=== PATIENT | male | born 2000 | race Caucasian/White ===

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

== ENCOUNTER 2021-04-10 13:29 | Emergency (ER) | payer OTHER ==
[~2021-04-10] VITALS: Ht 185.4 cm; Wt 66.2 kg
[2021-04-10 13:31] VITALS: BP 122/69
--- OUTSIDE RECORDS SUMMARY | 2021-04-10 13:37 | CCD ---
Author Author [facility] Organization [facility] Address Unknown Phone Unavailable Care Team Providers Care Wine Bottle Inspector Name Role Phone Nargis-Centner, Graciela Unavailable Unavailable Nargis-Centner, Graciela Unavailable Unavailable Nargis-Centner, Graciela Unavailable Unavailable Nargis-Centner, Graciela Unavailable Unavailable Nargis-Centner, Graciela Unavailable Unavailable Nargis-Centner, Graciela Unavailable Unavailable Nargis-Centner, Graciela Unavailable Unavailable Nargis-Centner, Graciela Unavailable Unavailable Nargis-Centner, Graciela Unavailable Unavailable Nargis-Centner, Graciela Unavailable Unavailable Nargis-Centner, Graciela Unavailable Unavailable ROSS, G EDWARD RPA Unavailable Unavailable ROSS, G EDWARD RPA Unavailable Unavailable ROSS, G EDWARD RPA Unavailable Unavailable ROSS, G EDWARD RPA Unavailable Unavailable ROSS, G EDWARD RPA Unavailable Unavailable ROSS, G EDWARD RPA Unavailable Unavailable ROSS, G EDWARD RPA Unavailable Unavailable ROSS, G EDWARD RPA Unavailable Unavailable ROSS, G EDWARD RPA Unavailable Unavailable ROSS, G EDWARD RPA Unavailable Unavailable ROSS, G EDWARD RPA Unavailable Unavailable ROSS, G EDWARD RPA Unavailable Unavailable ROSS, G EDWARD RPA Unavailable Unavailable ROSS, G EDWARD RPA Unavailable Unavailable ROSS, G EDWARD RPA Unavailable Unavailable ROSS, G EDWARD RPA Unavailable Unavailable ROSS, G EDWARD RPA Unavailable Unavailable ROSS, G EDWARD RPA Unavailable Unavailable ROSS, G EDWARD RPA Unavailable Unavailable ROSS, G EDWARD RPA Unavailable Unavailable ROSS, G EDWARD RPA Unavailable Unavailable ROSS, G EDWARD RPA Unavailable Unavailable ROSS, G EDWARD RPA Unavailable Unavailable ROSS, G EDWARD RPA Unavailable Unavailable ROSS, G EDWARD RPA Unavailable Unavailable ROSS, G EDWARD RPA Unavailable Unavailable ROSS, G EDWARD RPA Unavailable Unavailable ROSS, G EDWARD RPA Unavailable Unavailable ROSS, G EDWARD RPA Unavailable Unavailable ROSS, G EDWARD RPA Unavailable Unavailable ROSS, G EDWARD RPA Unavailable Unavailable ROSS, G EDWARD RPA Unavailable Unavailable ROSS, G EDWARD RPA Unavailable Unavailable ROSS, G EDWARD RPA Unavailable Unavailable ROSS, G EDWARD RPA Unavailable Unavailable ROSS, G EDWARD RPA Unavailable Unavailable ROSS, G EDWARD RPA Unavailable Unavailable Solorio, [place] Dee Unavailable Unavailable Solorio, [place] Dee Unavailable Unavailable Solorio, [place] Dee Unavailable Unavailable Solorio, [place] Dee Unavailable Unavailable Solorio, [place] Dee Unavailable Unavailable Solorio, [place] Dee Unavailable Unavailable Solorio, [place] Dee Unavailable Unavailable Solorio, [place] Dee Unavailable Unavailable Solorio, [place] Dee Unavailable Unavailable Solorio, [place] Dee Unavailable Unavailable Solorio, [place] Dee Unavailable Unavailable Solorio, [place] Dee Unavailable Unavailable Solorio, [place] Dee Unavailable Unavailable Re-disclosure Warning The records that you are about to access may contain information from federally-assisted alcohol or drug abuse programs. If such information is present, then the following federally mandated warning applies: This information has been disclosed to you from records protected by federal confidentiality rules (42 CFR part 2). The federal rules prohibit you from making any further disclosure of this information unless further disclosure is expressly permitted by the written consent of the person to whom it pertains or as otherwise permitted by 42 CFR part 2. A general authorization for the release of medical or other information is NOT sufficient for this purpose. The Federal rules restrict any use of the information to criminally investigate or prosecute any alcohol or drug abuse patient.The records that you are about to access may contain highly sensitive health information, the redisclosure of which is protected by Article 27-F of the [facility] Public Health law. If you continue you may have access to information: Regarding HIV / AIDS; Provided by facilities licensed or operated by the [facility] Office of Mental Health; or Provided by the [facility] Office for People With Developmental Disabilities. If such information is present, then the following [facility] mandated warning applies: This information has been disclosed to you from confidential records which are protected by state law. State law prohibits you from making any further disclosure of this information without the specific written consent of the person to whom it pertains, or as otherwise permitted by law. Any unauthorized further disclosure in violation of state law may result in a fine or assisted sentence or both. A general authorization for the release of medical or other information is NOT sufficient authorization for further disc losure. Allergies and Adverse Reactions Type Description Substance Reaction Status Data Source(s ) Allergy to substance Allergy to substance Allergy to substance [place] ([facility]) Allergy to substance Allergy to substance Allergy to substance [place] ([facility]) Encounters Encounter Providers Location Date Indications Data Source(s ) Outpatient Attender: GISELL ROSS RPA 12/09 01:08:37 PM EDT - 12/09/2020 02:38:47 PM EDT [facility] ([facility] ) Graciela Barillas RPA-C: [address] [place] [address], Ph. Attender: Graciela Chu [facility] Medical 10/07/2020 12:00:00 AM EDT [place] ([facility]) MIGUEL Hernandez-C: [address] [place] [address], Ph. Attender: Dee Solorio [facility] Medical 09/10/2020 12:00:00 AM EDT [place] ([facility]) MIGUEL Hrenandez-C: [address] [place] [address], Ph. Attender: Dee Solorio [facility] Medical 09/10/2020 12:00:00 AM EDT [place] ([facility]) Immunizations Vaccine Date Status Description Data Source(s) COVID-19, mRNA, LNP-S, PF, 100 mcg/0.5 mL dose 10/08/2020 11 :06:48 PM EDT completed 10.5 mL [place] ([facility]) COVID-19 VACCINE Moderna 10/08/2020 12:00:00 AM EDT completed [place] Vaccine Series Complete: YESThis Data wa s Submitted to [facility] Via [employer]. COVID-19, mRNA, LNP-S, PF, 100 mcg/0.5 mL dose 09/11/2020 07 :34:21 AM EDT completed 10.5 mL [place] ([facility]) COVID-19, mRNA, LNP-S, PF, 100 mcg/0.5 mL dose 09/11/2020 07 :34:21 AM EDT completed 10.5 mL [place] ([facility]) COVID-19 VACCINE Moderna 09/11/2020 12:00:00 AM EDT completed [place] Vaccine Series Complete: NOThis Data was Submitted to [facility] Via [employer]. Medications No Information Insurance Providers Payer name Policy type / Coverage type Policy ID Covered green party ID Covered green party's relationship to wallis Policy [place] Plan Information / [id number] Self 00 [id number] [employer] [place] [id number] S [id number] EMEDNY [id number] SP [id number] [facility] [id number] SP [id number] ACTIVE DUTY [id number] FA2 [id number] [facility] [id number] SP [id number] EMEDNY [id number] SP [id number] MEDICAID [id number] SP [id number] SELF PAY ONLY [id number] SP [id number] [facility] [id number] SP [id number] ANSI-Medicaid [id number] ANSI-Not a Secondary Insurance [id number] MEDICAID [id number] [facility] OFFICE OF MENTAL HEALTH [id number] [facility] OFFICE OF MENTAL HEALTH [id number] [facility] [id number] F [id number] [facility] [id number] FA2 [id number] [facility] [employer] Commercial [id number] Family Depend[address] t HEALTHNET/ AD P [id number] C [id number] [facility] HUMANA [id number] FA2 [id number] [employer]ALTH[employer]/ AD P [id number] C [id number] Problems, Conditions, and Diagnoses No Information Surgeries/Procedures No Information Results ID Date Data Source [id number] 12/09/2020 02:00:00 PM EDT [facility] Name Value Range Interpretation Code Description Data Marcy rce(s) Supporting Document(s) SARS-CoV-2 RNA Resp Ql JD+probe NOT DETECTED [facility] This lab was ordered by SMITH villegas and reported by SMITH Echeverria. Procedure Social History No Information
--- NOTE | 2021-04-10 14:03 | REP ---
INDICATION: hx of pneumo, sob COMPARISON: 03/03/2020 TECHNIQUE: PA and lateral. FINDINGS: The mediastinum and cardiac silhouette are normal. The lung celeste are clear and without acute consolidation, effusion, or pneumothorax. The skeletal structures are intact and normal. IMPRESSION: No acute cardiopulmonary process. <Electronically signed by Bonifacio Cochran > 04/10/21 2518
--- OUTSIDE RECORDS SUMMARY | 2021-04-10 17:08 | CCD ---
Author Author [facility] Organization [facility] Address Unknown Phone Unavailable Care Team Providers Care Neurosurgery Spine Physician Name Role Phone Nargis-Centner, Graciela Unavailable Unavailable [...] Unavailable ROSS, G EDWARD RPA Unavailable Unavailable RSOS, G EDWARD RPA Unavailable Unavailable ROSS, G [...] ROSS, G EDWARD RPA Unavailable Unavailable Solorio, [place] Dee Unavailable Unavailable Solorio, [place] Dee Unavailable Unavailable Solorio, [place] Dee Unavailable Unavailable Solorio, [place] Dee Unavailable Unavailable Solorio, [place] Dee Unavailable Unavailable Solorio, [place] Dee Unavailable Unavailable Solorio, [place] Dee Unavailable Unavailable Solorio, [place] Dee Unavailable Unavailable Solorio, [place] Dee Unavailable Unavailable Solorio, [place] Dee Unavailable Unavailable Solorio, [place] Dee Unavailable Unavailable Solorio, [place] Dee Unavailable Unavailable Solorio, [place] Dee Unavailable Unavailable Re-disclosure Warning The records [...] is protected by Article 27-F of the [facility] Public Health law. If you continue you may have access to information: Regarding HIV / AIDS; Provided by facilities licensed or operated by the [facility] Office of Mental Health; or Provided by the [facility] Office for People With Developmental Disabilities. If such information is present, then the following [facility] mandated warning applies: This information has been [...] law may result in a fine or fci sentence or both. A general authorization for the release of medical or other information is NOT sufficient authorization for further disc losure. Allergies and Adverse Reactions Type Description Substance Reaction Status Data Source(s ) Allergy to substance Allergy to substance Allergy to substance [place] ([facility]) Allergy to substance Allergy to substance Allergy to substance [place] ([facility]) Encounters Encounter Providers Location Date Indications Data Source(s ) Outpatient Attender: GISELL ROSS RPA 12/09 01:08:37 PM EDT - 12/09/2020 02:38:47 PM EDT [facility] ([facility] ) Graciela Barillas RPA-C: [address] [place] [address], Ph. Attender: Graciela Chu [facility] Medical 10/07/2020 12:00:00 AM EDT [place] ([facility]) MIGUEL Hernandez-C: [address] [place] [address], Ph. Attender: Dee Solorio [facility] Medical 09/10/2020 12:00:00 AM EDT [place] ([facility]) MIGUEL Hernandez-C: [address] [place] [address], Ph. Attender: Dee Solorio [facility] Medical 09/10/2020 12:00:00 AM EDT [place] ([facility]) Immunizations Vaccine Date Status Description Data Source(s) COVID-19, mRNA, LNP-S, PF, 100 mcg/0.5 mL dose 10/08/2020 11 :06:48 PM EDT completed 10.5 mL [place] ([facility]) COVID-19 VACCINE Moderna 10/08/2020 12:00:00 AM EDT completed [place] Vaccine Series Complete: YESThis Data wa s Submitted to [facility] Via [employer]. COVID-19, mRNA, LNP-S, PF, 100 mcg/0.5 mL dose 09/11/2020 07 :34:21 AM EDT completed 10.5 mL [place] ([facility]) COVID-19, mRNA, LNP-S, PF, 100 mcg/0.5 mL dose 09/11/2020 07 :34:21 AM EDT completed 10.5 mL [place] ([facility]) COVID-19 VACCINE Moderna 09/11/2020 12:00:00 AM EDT completed [place] Vaccine Series Complete: NOThis Data was Submitted to [facility] Via [employer]. Medications No Information Insurance Providers Payer name Policy type / Coverage type Policy ID Covered alliance party ID Covered alliance party's relationship to wallis Policy [place]is Plan Information / [id number] Self 00 [id number] [employer] [place] [id number] S [id number] EMEDNY [id number] SP [id number] [facility] [id number] SP [id number] ACTIVE DUTY [id number] FA2 [id number] [facility] [id number] SP [id number] EMEDNY [id number] SP [id number] MEDICAID [id number] SP [id number] SELF PAY ONLY [id number] SP [id number] [facility] [id number] SP [id number] ANSI-Medicaid [id number] ANSI-Not a Secondary Insurance [id number] MEDICAID [id number] [facility] OFFICE OF MENTAL HEALTH [id number] [facility] OFFICE OF MENTAL HEALTH [id number] [facility] [id number] F [id number] PGBA [facility] [id number] FA2 [id number] [facility] [employer] Commercial [id number] Family Dependen t HEALTHNET/ AD P [id number] C [id number] [facility] HUMANA [id number] FA2 [id number] [employer]ALTH[employer]/ AD P [id number] C [id number] Problems, Conditions, and Diagnoses No Information Surgeries/Procedures No Information Results ID Date Data Source [id number] 12/09/2020 02:00:00 PM EDT [facility] Name Value Range Interpretation Code Description Data Marcy rce(s) Supporting Document(s) SARS-CoV-2 RNA Resp Ql JD+probe NOT DETECTED [facility] This lab was ordered by SMITH villegas and reported by SMITH Echeverria. Procedure Social History No Information
== END 2021-04-10 16:40 | disposition left against medical advice (07) ==
LOC: M ED 13:29
DX: Z53.21 Procedure and treatment not carried out due to patient leaving prior to being seen by health care provider (principal)

== ENCOUNTER → 2021-06-02 | Outpatient (CLI) | payer OTHER | LOC: M LABSMTC 11:21 | PROVIDERS: ATTEND Pediatrics | DX: Z20.822 Contact with and (suspected) exposure to COVID-19 (principal) | CPT/HCPCS: C9803; U0003 ==

== ENCOUNTER 2021-10-11 09:34 | Emergency (ER) | payer OTHER ==
[~2021-10-11] VITALS: Ht 188 cm; Wt 62.8 kg
[2021-10-11] MEDS ORDERED: MORPHINE 4 MG/ML 1ML VIAL/SYRINGE IV ONE (10:20)
[2021-10-11 10:45] LABS: BASO % 0.3 % (0.0-1.0); EOS # 0.1 10^3/uL (0.0-0.5); EOS % 0.6 % (0.0-3.0); HEMATOCRIT 45.1 % (42.0-52.0); LYMPH # 1.7 10^3/uL (1.5-5.0); LYMPH % 16.9 % (24.0-44.0); MEAN CORPUSCULAR HEMOGLOBIN 32.1 pg (27.0-33.0); MEAN CORPUSCULAR HGB CONC 35.5 g/dl (32.0-36.5); MEAN CORPUSCULAR VOLUME 90.4 fl (80.0-96.0); MONO # 0.7 10^3/uL (0.0-0.8); MONO % 7.1 % (2.0-8.0); NEUTROPHILS # 7.6 10^3/uL (1.5-8.5); NEUTROPHILS % 74.8 % (36.0-66.0); PLATELET COUNT, AUTOMATED 229 10^3/uL (150-450); RED BLOOD COUNT 4.99 10^6/uL (4.30-6.10); WHITE BLOOD COUNT 10.2 10^3/uL (4.0-10.0)
[2021-10-11] MEDS ORDERED: ISOVUE-370 76% 100ML VIAL As Ordered ONE (11:17)
[2021-10-11 11:24] LABS: ALBUMIN 4.5 GM/DL (3.2-5.2); ALT/SGPT 19 U/L (12-78); BILIRUBIN,TOTAL 2.3 MG/DL (0.2-1.0); BLOOD UREA NITROGEN 14 MG/DL (7-18); CALCIUM LEVEL 9.2 MG/DL (8.5-10.1); CARBON DIOXIDE LEVEL 28 MEQ/L (21-32); CHLORIDE LEVEL 105 MEQ/L (98-107); GLUCOSE, FASTING 95 MG/DL (70-100); POTASSIUM SERUM 4.2 MEQ/L (3.5-5.1); SODIUM LEVEL 138 MEQ/L (136-145); TOTAL PROTEIN 7.3 GM/DL (6.4-8.2)
[2021-10-11] MEDS ORDERED: HYDR-3713 PO (13:57)
[2021-10-11 14:20] VITALS: BP 132/72
== END 2021-10-11 14:24 | disposition home or self-care (01) ==
LOC: M ED 09:34
DX: S42.112A Displaced fracture of body of scapula, left shoulder, initial encounter for closed fracture (principal); S73.102A Unspecified sprain of left hip, initial encounter; W14.XXXA Fall from tree, initial encounter; F17.200 Nicotine dependence, unspecified, uncomplicated; F12.10 Cannabis abuse, uncomplicated; F31.9 Bipolar disorder, unspecified; Y92.830 Public park as the place of occurrence of the external cause; Y93.9 Activity, unspecified; Y99.9 Unspecified external cause status
CPT/HCPCS: 71101; 71260; 72128; 72131; 73030; 73200; 73502; 73552; 74177; 80053; 85025; 96374; 99284; J2270; Q9967

== ENCOUNTER → 2022-02-16 | Outpatient (CLI) | payer OTHER ==
[~2022-02-16] MED LIST changes: +HYDR-3713 PO
[2022-02-16 14:29] LABS: HIV 1&2 SCREEN CENTAUR NEGATIVE (NEGATIVE)
[2022-02-16 15:00] LABS: GC DNA AMPLIFICATION NEGATIVE (NEGATIVE)
[2022-02-19 06:08] LABS: HSV-1 DNA Negative (Negative); HSV-2 DNA Negative (Negative)
== END ==
LOC: M WUC 10:27
PROVIDERS: ATTEND Physician Assistant
DX: Z20.2 Contact with and (suspected) exposure to infections with a predominantly sexual mode of transmission (principal)

== ENCOUNTER 2022-04-27 17:43 | Emergency (ER) | payer OTHER ==
[~2022-04-27] VITALS: Ht 188 cm; Wt 67.7 kg
[2022-04-27] MEDS ORDERED: ACETAMINOPHEN 500 MG TAB PO ONE (21:10)
[2022-04-27 21:44] LABS: BASO % 0.5 % (0.0-1.0); EOS # 0.2 10^3/uL (0.0-0.5); EOS % 3.1 % (0.0-3.0); HEMATOCRIT 47.8 % (42.0-52.0); HEMOGLOBIN 16.3 g/dl (13.5-17.5); LYMPH # 3.1 10^3/uL (1.5-5.0); LYMPH % 40.8 % (24.0-44.0); MEAN CORPUSCULAR HGB CONC 34.1 g/dl (32.0-36.5); MEAN CORPUSCULAR VOLUME 90.9 fl (80.0-96.0); MONO # 0.4 10^3/uL (0.0-0.8); MONO % 5.6 % (2.0-8.0); NEUTROPHILS # 3.7 10^3/uL (1.5-8.5); NEUTROPHILS % 49.9 % (36.0-66.0); PLATELET COUNT, AUTOMATED 241 10^3/uL (150-450); RED BLOOD COUNT 5.26 10^6/uL (4.30-6.10); WHITE BLOOD COUNT 7.5 10^3/uL (4.0-10.0)
[2022-04-27 22:14] LABS: INR 1.11; PARTIAL THROMBOPLASTIN TIME 29.9 SECONDS (24.8-34.2); PROTHROMBIN TIME 14.5 SECONDS (12.5-14.5)
[2022-04-27 22:28] LABS: CK-MB VALUE MASS < 1.0 NG/ML (<3.6)
[2022-04-27 22:31] LABS: BLOOD UREA NITROGEN 15 MG/DL (9-23); CALCIUM LEVEL 9.7 MG/DL (8.5-10.1); CARBON DIOXIDE LEVEL 31 MMOL/L (20-31); CHLORIDE LEVEL 103 MMOL/L (98-107); CPK CREATINE PHOSPHOKINASE 104 U/L (46-171); GLUCOSE, FASTING 83 MG/DL (60-100); MB/CK RELATIVE INDEX 0.96 (< OR =4); POTASSIUM SERUM 4.3 MMOL/L (3.5-5.1); SODIUM LEVEL 140 MMOL/L (136-145)
[2022-04-28 00:29] LABS: CK-MB VALUE MASS < 1.0 NG/ML (<3.6)
[2022-04-28 00:30] LABS: CPK CREATINE PHOSPHOKINASE 94 U/L (46-171); MB/CK RELATIVE INDEX 1.06 (< OR =4)
[2022-04-28 00:40] VITALS: BP 125/70
== END 2022-04-28 00:44 | disposition home or self-care (01) ==
LOC: M ED 17:43
DX: S29.011A Strain of muscle and tendon of front wall of thorax, initial encounter (principal); S20.211A Contusion of right front wall of thorax, initial encounter; S20.212A Contusion of left front wall of thorax, initial encounter; Y04.0XXA Assault by unarmed brawl or fight, initial encounter; R00.1 Bradycardia, unspecified; I45.10 Unspecified right bundle-branch block; F32.A Depression, unspecified; F31.9 Bipolar disorder, unspecified; F90.9 Attention-deficit hyperactivity disorder, unspecified type; F12.10 Cannabis abuse, uncomplicated; Z87.891 Personal history of nicotine dependence

== ENCOUNTER 2022-08-17 18:29 | Emergency (ER) | payer OTHER ==
[~2022-08-17] VITALS: Ht 188 cm; Wt 67.1 kg
[~2022-08-17 18:29] MED LIST changes: +NYST-38 SS; -NYST50SS SS
[2022-08-17] MEDS ORDERED: GI COCKTAIL 50ML BTL(HYOSCYAMINE/MAALOX/LIDOCAINE VISCOUS)(1:3:1) PO ONE (20:00)
[2022-08-17 20:28] LABS: BASO % 0.3 % (0.0-1.0); EOS # 0.2 10^3/uL (0.0-0.5); EOS % 1.4 % (0.0-3.0); HEMATOCRIT 47.3 % (42.0-52.0); HEMOGLOBIN 16.2 g/dl (13.5-17.5); LYMPH # 2.4 10^3/uL (1.5-5.0); LYMPH % 19.2 % (24.0-44.0); MEAN CORPUSCULAR HEMOGLOBIN 30.7 pg (27.0-33.0); MEAN CORPUSCULAR HGB CONC 34.2 g/dl (32.0-36.5); MEAN CORPUSCULAR VOLUME 89.6 fl (80.0-96.0); MONO # 0.7 10^3/uL (0.0-0.8); MONO % 5.5 % (2.0-8.0); NEUTROPHILS % 73.4 % (36.0-66.0); PLATELET COUNT, AUTOMATED 271 10^3/uL (150-450); RED BLOOD COUNT 5.28 10^6/uL (4.30-6.10); WHITE BLOOD COUNT 12.3 10^3/uL (4.0-10.0)
[2022-08-17 20:50] LABS: CK-MB VALUE MASS < 1.0 NG/ML (<3.6)
[2022-08-17 20:52] LABS: BLOOD UREA NITROGEN 11 MG/DL (9-23); CARBON DIOXIDE LEVEL 32 MMOL/L (20-31); CHLORIDE LEVEL 103 MMOL/L (98-107); CREATININE FOR GFR 0.96 MG/DL (0.70-1.30); GLUCOSE, FASTING 73 MG/DL (60-100); POTASSIUM SERUM 4.4 MMOL/L (3.5-5.1); SODIUM LEVEL 140 MMOL/L (136-145)
[2022-08-17 20:54] LABS: THYROID STIMULATING HORMONE 0.671 uIU/ML (0.48-4.17)
[2022-08-17 20:57] LABS: CPK CREATINE PHOSPHOKINASE 98 U/L (46-171); MB/CK RELATIVE INDEX 1.02 (< OR =4)
[2022-08-17 20:59] LABS: INR 1.14; PROTHROMBIN TIME 14.8 SECONDS (12.5-14.5)
[2022-08-17 21:00] LABS: PARTIAL THROMBOPLASTIN TIME 30.8 SECONDS (24.8-34.2)
[2022-08-17 21:09] LABS: D-DIMER QUANT < 270 ng/ml (<500)
[2022-08-17] MEDS ORDERED: PRIL20TA2 PO (21:56)
[2022-08-17 22:14] VITALS: BP 120/81
[2022-08-17 23:07] LABS: CK-MB VALUE MASS < 1.0 NG/ML (<3.6)
[2022-08-17 23:13] LABS: CPK CREATINE PHOSPHOKINASE 103 U/L (46-171); MB/CK RELATIVE INDEX 0.97 (< OR =4)
== END 2022-08-17 23:07 | disposition left against medical advice (07) ==
LOC: M ED 18:29
DX: R07.89 Other chest pain (principal); F32.A Depression, unspecified; Z87.891 Personal history of nicotine dependence

== ENCOUNTER 2022-11-25 13:12 | Emergency (ER) | payer OTHER ==
[~2022-11-25] VITALS: Ht 188 cm; Wt 64.0 kg
[~2022-11-25 13:12] MED LIST changes: +PRIL20TA2 PO
[2022-11-25] MEDS ORDERED: BACT800T5 PO (15:44)
[2022-11-25 15:54] VITALS: BP 120/69; TEMP 99.2; O2SAT 98
== END 2022-11-25 15:56 | disposition home or self-care (01) ==
LOC: M ED 13:12
DX: L03.314 Cellulitis of groin (principal); F31.9 Bipolar disorder, unspecified; F17.200 Nicotine dependence, unspecified, uncomplicated; F12.10 Cannabis abuse, uncomplicated; Z79.83 Long term (current) use of bisphosphonates; Z79.899 Other long term (current) drug therapy

== ENCOUNTER 2024-12-14 07:55 | Emergency (ER) | payer OTHER ==
[~2024-12-14] VITALS: Ht 188 cm; Wt 68.2 kg
[~2024-12-14 07:55] MED LIST changes: +BACT800T5 PO
[2024-12-14] MEDS: IBUPROFEN 600 MG TAB PO ONE (11:12)
[2024-12-14 11:54] VITALS: BP 114/61; TEMP 97.9; O2SAT 99
[2024-12-14] MEDS: BOOSTRIX VACCINE (TETANUS/DIPHTH/ACEL. PERTUSSIS) 0.5 ML SYR IM.IMMUN ONE (11:56)
== END 2024-12-14 12:05 | disposition home or self-care (01) ==
LOC: M ED 07:55
DX: S90.935A Unspecified superficial injury of left lesser toe(s), initial encounter (principal); W24.0XXA Contact with lifting devices, not elsewhere classified, initial encounter; F17.200 Nicotine dependence, unspecified, uncomplicated; F12.10 Cannabis abuse, uncomplicated; Y92.89 Other specified places as the place of occurrence of the external cause; Y93.89 Activity, other specified; Y99.0 Civilian activity done for income or pay; Z79.899 Other long term (current) drug therapy; Z79.2 Long term (current) use of antibiotics; Z23 Encounter for immunization